=== PATIENT | female | born 2000 ===

== ENCOUNTER 2021-04-20 15:02 | Emergency (ER) | payer SELFPAY ==
[2021-04-20 21:24] VITALS: BP 128/82
== END 2021-04-20 21:25 | disposition home or self-care (01) ==
LOC: ED 15:02
DX: L71.0 Perioral dermatitis (principal); R19.7 Diarrhea, unspecified; J06.9 Acute upper respiratory infection, unspecified; N39.0 Urinary tract infection, site not specified; R07.89 Other chest pain; R10.10 Upper abdominal pain, unspecified; Z79.899 Other long term (current) drug therapy
CPT/HCPCS: 36415; 71046; 80048; 80076; 81001; 83690; 84703; 85025; 87086; 99283